=== PATIENT | female | born 1960 | race Caucasian/White ===

== ENCOUNTER 2017-03-31 10:09 | Day surgery (SDC) | payer OTHER, SELFPAY ==
[~2017-03-31] VITALS: Ht 160 cm; Wt 76.8 kg
[~2017-03-31 10:09] MED LIST: ACET120S; Citalopram10 MG/5 ML; ESTMED; FERR325 PO; LEVFLO250; MEDR2.5; MULVITB&C PO; Omeprazole20 M1; STOOL SOFTNER; VITB 12 SL
[2017-06-16] MEDS ORDERED: Citalopram HBr10 MG PO (08:53)
[2017-06-16] MEDS ORDERED: MEDR5 PO (08:54)
[2017-06-16] MEDS ORDERED: ESTROGEN-METHY1 EAC1 PO (08:54)
[2017-06-16] MEDS ORDERED: Omeprazole20 M1 PO (08:55)
== END 2017-03-31 13:10 | disposition home or self-care (01) ==
LOC: ORSCSDS 10:09
PROVIDERS: Internal Medicine Gastroenterology
PROC: 0D788ZZ Dilation of Small Intestine, Via Natural or Artificial Opening Endoscopic (ICD-10-PCS; principal; 2017-03-31 11:30)
DX: K25.9 Gastric ulcer, unspecified as acute or chronic, without hemorrhage or perforation (principal); K56.699 Other intestinal obstruction unspecified as to partial versus complete obstruction; R93.8 Abnormal findings on diagnostic imaging of other specified body structures; Z98.84 Bariatric surgery status
CPT/HCPCS: C1726; J7120

== ENCOUNTER → 2017-04-12 | Outpatient (CLI) | payer OTHER, SELFPAY ==
[~2017-04-12] MED LIST changes: +Citalopram HBr10 MG PO; +ESTROGEN-METHY1 EAC1 PO; +MEDR5 PO; +Omeprazole20 M1 PO
[2017-04-13 13:44] LABS: Source ENDOCER/CERV
== END ==
LOC: LAB 14:00
PROVIDERS: Family Medicine
DX: Z12.72 Encounter for screening for malignant neoplasm of vagina (principal); Z90.710 Acquired absence of both cervix and uterus
CPT/HCPCS: G0145

== ENCOUNTER 2017-06-20 08:04 | Day surgery (SDC) | payer OTHER ==
[~2017-06-20] VITALS: Ht 160 cm; Wt 77.6 kg
== END 2017-06-20 09:50 | disposition home or self-care (01) ==
LOC: ORSCMMR 08:04 → ORD 09:00 → ORSCMMR 09:00
PROVIDERS: Internal Medicine Gastroenterology
PROC: 0DBM8ZX Excision of Descending Colon, Via Natural or Artificial Opening Endoscopic, Diagnostic (ICD-10-PCS; principal; 2017-06-20 09:00)
DX: Z12.11 Encounter for screening for malignant neoplasm of colon (principal); D12.4 Benign neoplasm of descending colon; K57.30 Diverticulosis of large intestine without perforation or abscess without bleeding; K64.8 Other hemorrhoids; F32.9 Major depressive disorder, single episode, unspecified; Z86.010 Personal history of colon polyps; Z98.84 Bariatric surgery status; Z79.899 Other long term (current) drug therapy
CPT/HCPCS: 88305; J7120

== ENCOUNTER 2017-08-11 13:03 | Day surgery (SDC) | payer OTHER, SELFPAY | END 2017-08-11 23:05 | disposition home or self-care (01) | LOC: CT 13:03 | PROVIDERS: Radiology Diagnostic Radiology | PROC: 07BB3ZX Excision of Mesenteric Lymphatic, Percutaneous Approach, Diagnostic (ICD-10-PCS; principal; 2017-08-11 15:00) | DX: D47.9 Neoplasm of uncertain behavior of lymphoid, hematopoietic and related tissue, unspecified (principal); R19.07 Generalized intra-abdominal and pelvic swelling, mass and lump; J45.909 Unspecified asthma, uncomplicated | CPT/HCPCS: 49180; 77012 ==

== ENCOUNTER → 2018-11-07 | Outpatient (CLI) | payer OTHER ==
[2018-11-09 15:07] LABS: HPV 16 Negative (Negative); HPV 18 Negative (Negative); HPV OTHER HR TYPES Negative (Negative)
== END | disposition home or self-care (01) ==
LOC: LAB 20:20 → LAB SHORT 20:20
PROVIDERS: Family Medicine
DX: Z12.72 Encounter for screening for malignant neoplasm of vagina (principal); Z90.710 Acquired absence of both cervix and uterus
CPT/HCPCS: 87624; G0145

== ENCOUNTER → 2019-06-04 | Outpatient (CLI) | payer OTHER | END | disposition home or self-care (01) | LOC: LAB SHORT 11:19 → PLD 11:19 | DX: D22.5 Melanocytic nevi of trunk (principal) | CPT/HCPCS: 88305 ==